=== PATIENT | male | born 1990 | race African-American/Black ===

== ENCOUNTER 2016-12-08 21:27 | Emergency (ER) | payer SELFPAY | END 2016-12-08 22:45 | disposition left against medical advice (07) | LOC: ER 21:27 | DX: Z53.21 Procedure and treatment not carried out due to patient leaving prior to being seen by health care provider (principal) ==

== ENCOUNTER 2017-02-17 09:29 | Emergency (ER) | payer MEDICAID ==
[~2017-02-17] VITALS: Ht 172.7 cm; Wt 66.0 kg
[2017-02-17 10:07] VITALS: BP 131/87
[2017-02-17] MEDS ORDERED: IBUPROFEN 800MG TABLET PO ONE (10:15)
== END 2017-02-17 10:23 | disposition home or self-care (01) ==
LOC: ER 10:12
DX: K08.89 Other specified disorders of teeth and supporting structures (principal); F17.200 Nicotine dependence, unspecified, uncomplicated; F12.10 Cannabis abuse, uncomplicated
CPT/HCPCS: 99282

== ENCOUNTER 2017-03-15 13:13 | Emergency (ER) | payer SELFPAY ==
[~2017-03-15] VITALS: Ht 172.7 cm; Wt 65.0 kg
[2017-03-15] MEDS ORDERED: IBUPROFEN 600MG TABLET PO ONE (13:30)
[2017-03-15] MEDS ORDERED: TETANUS, DIPHTHERIA, PERTUSSIS VAC/PF 0.5ML (>7YR OLD) IM ONE (13:30)
[2017-03-15 14:10] VITALS: BP 125/70
== END 2017-03-15 14:12 | disposition home or self-care (01) ==
LOC: ER 13:23
DX: S61.431A Puncture wound without foreign body of right hand, initial encounter (principal); S60.511A Abrasion of right hand, initial encounter; F12.10 Cannabis abuse, uncomplicated; X99.1XXA Assault by knife, initial encounter; Y93.89 Activity, other specified; Y92.488 Other paved roadways as the place of occurrence of the external cause
CPT/HCPCS: 90471; 90715; 99283